=== PATIENT | female | born 1970 | race Two or more races ===

== ENCOUNTER 2024-06-29 07:35 | Emergency (ER) | payer OTHER ==
[~2024-06-29] VITALS: Ht 165.1 cm; Wt 75.0 kg
[2024-06-29 07:39] VITALS: O2SAT 99
[2024-06-29 08:30] LABS: BASOPHILS % 0.4 % (0.0-2.0); EOSINOPHILS % 0.3 % (0.0-5.0); HEMATOCRIT. 41.9 % (36.0-48.0); HEMOGLOBIN. 13.8 g/dL (12.0-16.0); LYMPHOCYTES % 20.8 % (20.0-50.0); MEAN CORPUSCULAR HEMOGLOBIN 28.4 pg (28.0-32.0); MEAN PLATELET VOLUME 8.2 fl (7.4-10.4); MONOCYTES % 3.2 % (2.0-8.0); NEUTROPHILS % 75.3 % (40.0-76.0); PLATELET 259 x1000/uL (130-400); RED BLOOD CELL COUNT 4.88 mill/uL (4.2-5.4); RED CELL DISTRIBUTION WIDTH 13.5 % (11.6-14.6); WHITE BLOOD COUNT 9.8 x1000/uL (4.5-11.0)
[2024-06-29 08:40] LABS: PROTHROMBIN TIME 11.2 sec (9.6-11.0)
[2024-06-29 08:42] LABS: CHLORIDE 107 mEq/L (98-107); POTASSIUM 3.7 mEq/L (3.5-5.1); SODIUM 140 mEq/L (136-145)
[2024-06-29 08:43] LABS: CALCIUM 10.1 mg/dL (8.7-10.4); CARBON DIOXIDE 25 mEq/L (21-32)
[2024-06-29 08:48] LABS: CREATININE 0.8 mg/dL (0.6-1.0); GLUCOSE 161 mg/dL (70-105); UREA NITROGEN BLOOD 12 mg/dL (9-23)
[2024-06-29] MEDS: SODIUM CHLORIDE 0.9% 1,000 ML IV ONE (08:58)
[2024-06-29] MEDS: METOCLOPRAMIDE HCL 10MG/2ML VIAL IV STA (08:59)
[2024-06-29 10:55] VITALS: BP 144/78; PULSE 86; RESP 20; TEMP 36.66960; O2SAT 98
== END 2024-06-29 11:05 | disposition short-term general hospital (02) ==
LOC: ER 07:35 → CANBEDREQ 11:14
DX: R11.2 Nausea with vomiting, unspecified (principal)
CPT/HCPCS: 80048; 83690; 85025; 85610; 36415; 93005; 96361; 96374; 99285; J2765; J7030; Z7610